=== PATIENT | female | born 1960 | race Caucasian/White ===

== ENCOUNTER 2022-06-25 07:42 | Emergency (ER) | payer OTHER ==
[~2022-06-25] VITALS: Ht 162.6 cm; Wt 90.7 kg
--- NOTE | 2022-06-25 07:58 | NUR ---
DR VIVAR AT BEDSIDE FOR EVALUATION.
[2022-06-25] MEDS ORDERED: ACETAMINOPHEN ES 500 MG TABLET PO ONE (08:00)
[2022-06-25] MEDS ORDERED: ACETAMINOPHEN ES 500 MG TABLET ONE (08:01)
--- NOTE | 2022-06-25 08:04 | NUR ---
PT MEDICATED FOR PAIN PER MD ORDERS.
[2022-06-25] MEDS ORDERED: NAPR-1009 PO (09:06)
--- NOTE | 2022-06-25 09:22 | NUR ---
MD REVIEWED TEST RESULTS WITH PATIENT - PROVIDED CAM WALKER PER MD ORDER. DISCHARGED IN STABLE CONDITION.
[2022-06-25 09:23] VITALS: BP 125/84
== END 2022-06-25 09:23 | disposition home or self-care (01) ==
LOC: ER 07:42
DX: S93.602A Unspecified sprain of left foot, initial encounter (principal); M79.672 Pain in left foot; X50.3XXA Overexertion from repetitive movements, initial encounter; Y93.F9 Activity, other caregiving; Y92.230 Patient room in hospital as the place of occurrence of the external cause; Y99.0 Civilian activity done for income or pay
CPT/HCPCS: 73630; A4663; A9150